=== PATIENT | female | born 1970 | race Two or more races ===

== ENCOUNTER 2021-04-10 10:19 | Outpatient (CLI) | payer OTHER | END 2021-04-10 10:27 | disposition home or self-care (01) | LOC: RAD 10:19 | PROVIDERS: ATTEND Internal Medicine Pulmonary Disease | DX: J45.41 Moderate persistent asthma with (acute) exacerbation (principal); J11.1 Influenza due to unidentified influenza virus with other respiratory manifestations; J20.0 Acute bronchitis due to Mycoplasma pneumoniae ==